=== PATIENT | female | born 1960 | race Caucasian/White ===

== ENCOUNTER 2017-07-04 15:26 | Inpatient (IN) | payer OTHER ==
[~2017-07-04] VITALS: Ht 177.8 cm; Wt 89.8 kg
[~2017-07-04 15:26] MED LIST: TRAZ150T75 PO; VENL25TA14 PO
[2017-07-04] MEDS ORDERED: DULO20 PO (16:15)
[2017-07-04] MEDS ORDERED: VENL75TA PO (16:15)
[2017-07-04 16:18] VITALS: BP 144/77; PULSE 66; RESP 16; TEMP 98.1; O2SAT 97
[2017-07-04 16:45] LABS: AUTOMATED NEUTROPHIL # 4.9 TH/MM3 (1.8-7.7); BASOPHIL # 0.1 TH/MM3 (0-0.2); BASOPHIL % 1.3 % (0.0-2.0); EOSINOPHIL # 0.1 TH/MM3 (0-0.4); HEMATOCRIT 42.7 % (35.0-46.0); HEMO FLAGS DIFF FINAL; LYMPH % 18.9 % (9.0-44.0); LYMPHOCYTE # 1.3 TH/MM3 (1.0-4.8); MEAN CELL VOLUME 88.8 FL (80.0-100.0); MEAN CORPUSCULAR HEMOGLOBIN 29.4 PG (27.0-34.0); MEAN CORPUSCULAR HGB CONC 33.2 % (32.0-36.0); MONO % 7.7 % (0.0-8.0); NEUT % 71.1 % (16.0-70.0); PLATELET COUNT 305 TH/MM3 (150-450); RED BLOOD COUNT 4.81 MIL/MM3 (4.00-5.30); RED CELL DISTRIBUTION WIDTH 13.2 % (11.6-17.2); WHITE BLOOD COUNT 6.9 TH/MM3 (4.0-11.0)
[2017-07-04 16:54] LABS: AMPHETAMINE, URINE NEG (NEG); BARBITURATES, URINE NEG (NEG); COCAINE, URINE NEG (NEG)
--- NOTE | 2017-07-04 17:02 | RADRPT ---
EXAM DATE/TIME: 07/04/2017 16:54 [place] COMPARISON: No previous studies available for comparison. INDICATIONS : Twisted left ankle 1 month ago., pain lateral left ankle. MEDICAL HISTORY : None. SURGICAL HISTORY : None. ENCOUNTER: Initial ACUITY: 1 month PAIN SCORE: 6/10 LOCATION: Left lateral ankle FINDINGS: There is a minimally displaced oblique fracture of the tip of the distal left fibula. The distal tibi a is intact. The hindfoot is grossly intact. A moderately large plantar heel spur is noted incidental ly. CONCLUSION: Minimally displaced tip of lateral malleolar fracture Gideon Jasmine MD on July 04, 2017 at 17:00 Board Certified Radiologist. This report was verified electronically.
[2017-07-04 17:03] LABS: ACETAMINOPHEN LESS THAN 2.0 MCG/ML (10.0-30.0); ANION GAP 8 MEQ/L (5-15); BLOOD UREA NITROGEN 11 MG/DL (7-18); CHLORIDE 109 MEQ/L (98-107); GLOMERULAR FILTRATION RATE 57 ML/MIN (>89); POTASSIUM 3.7 MEQ/L (3.5-5.1); SODIUM (NA) 142 MEQ/L (136-145)
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
[2017-07-04 18:19] VITALS: BP 171/81; PULSE 62; RESP 18; O2SAT 97
[2017-07-04 22:03] VITALS: BP 117/58; PULSE 75; RESP 17; O2SAT 96
[2017-07-05] MEDS ORDERED: LORazepam 1 MG TAB PO PRN
[2017-07-05] MEDS ORDERED: ACETAMINOPHEN 325 MG TAB PO PRN
[2017-07-05] MEDS ORDERED: BENZTROPINE MESYLATE 2 MG/2 ML VIAL IM PRN
[2017-07-05] MEDS ORDERED: MAGNESIUM HYDROXIDE SUSP 30 ML CUP PO PRN
[2017-07-05] MEDS ORDERED: LORazepam 2 MG/ML VIAL IM PRN
[2017-07-05] MEDS ORDERED: BENZTROPINE MESYLATE 1 MG TAB PO PRN
[2017-07-05] MEDS ORDERED: ALUMINUM/MAGNESIUM/SIMETH 30 ML CUP PO PRN
[2017-07-05] MEDS ORDERED: diphenhydrAMINE HCL 50 MG CAP PO PRN
[2017-07-05 03:38] VITALS: BP 141/73; PULSE 65; RESP 18; TEMP 97.6; O2SAT 98
[2017-07-05 06:10] VITALS: BP 124/69; PULSE 71; RESP 16; TEMP 98; O2SAT 97
[2017-07-05] MEDS ORDERED: REMOVE OLD PATCH T-DERMAL SCH (09:00)
[2017-07-05] MEDS ORDERED: NICOTINE 21 MG/24 HR PATCH T-DERMAL SCH (09:00)
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
[2017-07-05 11:54] LABS: ANION GAP 8 MEQ/L (5-15); AST (GOT) 11 U/L (15-37); BICARBONATE 25.7 MEQ/L (21.0-32.0); BLOOD UREA NITROGEN 8 MG/DL (7-18); CHLORIDE 107 MEQ/L (98-107); GLOMERULAR FILTRATION RATE 62 ML/MIN (>89); POTASSIUM 3.8 MEQ/L (3.5-5.1); SODIUM (NA) 141 MEQ/L (136-145)
[2017-07-05 12:03] LABS: ALKALINE PHOSPHATASE 103 U/L (45-117); ALT (GPT) 12 U/L (10-53); FREE T4 1.05 NG/DL (0.76-1.46); HDL CHOLESTEROL 54.9 MG/DL (40.0-60.0); LDL CHOLESTEROL 111 MG/DL (0-99); TOTAL BILIRUBIN ADULT 0.8 MG/DL (0.2-1.0)
[2017-07-05 16:59] LABS: HEMOGLOBIN A1a 1.1 %; HEMOGLOBIN A1b 0.9 %; HEMOGLOBIN Ao 85.8 %; HEMOGLOBIN F 0.9 %; HEMOGLOBIN LA1C 2.1 %; HEMOGLOBIN P3 3.6 %
== END 2017-07-05 14:20 | disposition home or self-care (01) | DRG 882 ==
LOC: NEPJ 15:26 → NEDA 07-05 00:01 → H260 07-05 02:40
PROVIDERS: ADMIT Psychiatry & Neurology Psychiatry; ATTEND Psychiatry & Neurology Psychiatry
DX: F43.25 Adjustment disorder with mixed disturbance of emotions and conduct (principal); R45.851 Suicidal ideations; I10 Essential (primary) hypertension; F17.210 Nicotine dependence, cigarettes, uncomplicated; F32.9 Major depressive disorder, single episode, unspecified
CPT/HCPCS: 29515; 73610; 80048; 80053; 80061; 80307; 83036; 84439; 84443; 85025; E0113